=== PATIENT | male | born 1955 | race Caucasian/White ===

== ENCOUNTER 2025-02-10 09:22 | Outpatient (AMB) | payer BC, SELFPAY ==
--- NOTE | 2025-02-10 09:27 | MHC.OFFVIS ---
Intake Visit Reasons: 5M/ PD Allergies No Known Allergies Allergy (Verified 02/10/25 09:28) Medication List - Last Reconciled 02/10/25 by Maya Littlejohn CNP alendronate 70 mg PO QWEEK carbidopa-levodopa 25-100 mg 1 tab PO TID rasagiline 1 mg PO QAM sildenafil 100 mg PO DAILY HPI Comments Details: He was doing okay. He was taking carbidopa-levodopa three times a day. Tremor was stable. No functional impairment. No difficulty eating, drinking, or swallowing. No mobility issues. No difficulty getting up from chair or turning in bed. Still running and going to gym. No falls. Sleep was okay. Mobility and tremor improved with medication. No medication side effects. Running 20 miles/week and going to gym 3x/week. Has intermittent right hand tremor that started in 2022 that now only comes when stressed or cold. He's always had a somewhat poor posture, but is leaning forward more. There has been some change in his speech in that it is softer. His handwriting had become small and shaky, but is now back to normal. There is no problems with mobility getting in and out of bed or out of the car. His sense of smell is not as acute as it used to be. There is no history of nightmares and night terrors. His father in his mid 80s and had a Parkinson plus syndrome. The patient has been treated in the past with Fosamax for osteoporosis. He is otherwise healthy. [facility] Medical History (Updated 02/10/25 @ 09:32 by Maya Littlejohn CNP) Osteoporosis Physical Exam Const Other: General Appearance:? normal, in no acute distress. Heart:? S1, S2 normal, no murmurs. Lungs:? clear anteriorly and posteriorly. Musculoskeletal:? normal. Extremities:? no edema. Psych:? alert, oriented, cognitive function intact, cooperative with exam. Neuro Other: Abnormal Neurological Findings:?improved?facial expression.?Reduced, blinking frequency.?Positive glabellar tap. Forward leaning posture.?Reduced arm swing on the right.?Prominent resting tremor develops intermittently when he sitting, and most prominently when he is walking. Increased tone with mild to moderate cogwheeling on the right.?Normal tone on the left and in both lower extremities. Reflexes 2+ symmetrically.?No propulsion or retropulsion. Mental Status: alert and oriented X 3. Normal attention, orientation, memory, and affect. Cranial Nerves: Pupils are equal, round, and reactive to light. External ocular muscles are intact. Visual sheehan are full, no ptosis. Face is symmetrical, no facial weakness or droop. Facial sensations are normal. Tongue protrudes in midline. Palate elevates symmetrically. Shoulder shrugging is normal Motor Examination: Increased tone in RUE as above. Sensory Exam: Normal light touch, temperature, pinprick, vibration, and joint-position sensations. Rhomberg sign is absent. Coordination: No ataxia. No titubation. Gait Exam: As above. Cerebellar Signs: [id number] is okay. Extrapyramidal System: As above. Speech: Normal. Assessment & Plan Assessment & Plan (1) Parkinsons disease: Code(s): G20.A1 - Parkinson's disease without dyskinesia, without mention of fluctuations Category: Medical Qualifiers: Dyskinesia presence: unspecified whether dyskinesia Fluctuating manifestations: unspecified whether manifestations fluctuate Qualified Code(s): G20.A1 - Parkinson's disease without dyskinesia, without mention of fluctuations Plan: Continue rasagiline 1mg 1 tablet daily. Continue carbidopa-levodopa 25-100mg 1 tablet three times a day. Coding Level of Care Code Est Pt Level 4 (34925) Diagnoses Parkinson's disease, unspecified whether dyskinesia present, unspecified whether manifestations fluctuate G20.A1 Dyskinesia presence: unspecified whether dyskinesia Fluctuating manifestations: unspecified whether manifestations fluctuate
== END 2025-02-10 09:39 | disposition home or self-care (01) ==
PROVIDERS: PCP Internal Medicine; Referring Provider Internal Medicine; Visit Provider Registered Nurse
DX: G20.A1 Parkinson's disease without dyskinesia, without mention of fluctuations (principal)
CPT/HCPCS: 99214